=== PATIENT | female | born 1945 | race Caucasian/White ===

== ENCOUNTER 2023-09-15 14:35 | Emergency (ER) | payer MEDICARE, OTHER ==
[~2023-09-15] VITALS: Ht 157.5 cm; Wt 63.5 kg
[2023-09-15 15:10] VITALS: O2SAT 97
[2023-09-15] MEDS ORDERED: ACETAMINOPHEN 325 MG TABLET ONE (16:58)
[2023-09-15] MEDS: ACETAMINOPHEN 325 MG TABLET PO ONE (17:00)
== END 2023-09-15 17:40 | disposition home or self-care (01) ==
LOC: ER 14:35
DX: S01.81XA Laceration without foreign body of other part of head, initial encounter (principal); J45.909 Unspecified asthma, uncomplicated; K21.9 Gastro-esophageal reflux disease without esophagitis; Z88.0 Allergy status to penicillin; W01.0XXA Fall on same level from slipping, tripping and stumbling without subsequent striking against object, initial encounter; Y93.89 Activity, other specified; Y92.89 Other specified places as the place of occurrence of the external cause; Y99.8 Other external cause status
CPT/HCPCS: 70450; A4606; A4663